=== PATIENT | male | born 1955 | race Caucasian/White ===

== ENCOUNTER → 2016-10-30 | Outpatient (CLI) | payer BC ==
[~2016-10-30] MED LIST: AMITRIPTYLINE100 MG PO; AMITRYPTYLINE PO; AMOXIL500 M1 PO; COREG3.125 MG PO; COUMADIN PO; COUMADIN1 MG PO; COUMADIN10 MG PO; COUMADIN5 MG PO; DEMADEX PO; FLOMAX0.4 M1 PO; KEFLEX500 M1 PO; LANTUS100 U/ML SQ; LANTUS100 U/ML SUBQ; LANTUS100 UNITS/ SUBQ; LEVEMIR SQ; LIPITOR PO; LIPITOR80 MG PO; LISINOPRIL10 MG PO; NOVOLOG100 U/M1 SQ; NOVOLOG100 U/M1 SUBQ; NOVOLOG100 U/ML SQ; NOVOLOG100 U/ML SUBQ; OMNICEF300 M1 PO; PLETAL100 M1 PO; PLETAL100 MG PO; PRINCIPEN500 M2 PO; SODIUM BICARBO650 MG PO; TOPAMAX25 M1 PO; TOPAMAX25 MG PO; TRAMADOL HCL50 M1 PO; TRAMADOL HCL50 M2 PO; VIBRAMYCIN100 M1 PO; ZESTORETIC 20/21 TAB PO
--- NOTE | ~2016-10-30 | US77 ---
[facility] A Service of [facility] & [facility] RADIOLOGY TEXT RESULTS PATIENT: ABDULKADIR VILLEDA LOCATION: US : 56 UNIT #: [id number] AGE: [address]: Roger Quiroga MD SEX: M ORDER DR: [id number] [facility] [address] [place], [place] [address] [id number] O MR#: [id number] Acc #: [id number] NAME: ABDULKADIR VILLEDA : 1955 SEX: M STUDY DATE/TIME: 10/30/2016 13:29 UNIT: US ROOM: STUDY DESCRIPTION: US Kidney Bilateral Complete Attending Physician: Roger Quiroga M.D. Referring Physician: Roger Quiroga M.D. Ordering Physician: Roger Quiroga M.D. Primary Care Physician: Tari Garcia MEDICAL IMAGING REPORT This report is preliminary unless electronic signature is present EXAM Renal ultrasound. COMPARISON February 02, 2014, and December 30, 2013. INDICATIONS 61-year-old male with acute on chronic renal insufficiency. Estimated GFR of 32 with creatinine of 2.2. FINDINGS There is severe right hydronephrosis and proximal right hydroureter. The right kidney measures up to 13.4 cm in length, enlarged from comparison. There is peripheral cortical thinning in the right kidney which may have progressed from 2014 with cortical thickness of approximately 9 mm. There is fluid distension of the urinary bladder. There is moderate new left hydronephrosis and proximal hydroureter with left renal length of 15.6 cm, increased in length from comparison. There also appears to be some progressive cortical thinning of the left kidney, with some areas of cortical thickness measuring up to 7 mm. In one of the inferior pole calyces, there appears to be some debris or possibly solid material of uncertain clinical significance. This could also represent volume averaging with a normal adjacent renal parenchyma at the level of the dilated denny. Technologist shows an image of the dilated left ureter at the level of the urinary bladder with intervening band-like area of shadowing. This may be artifactual and an obstructing lesion at the distal left ureter cannot entirely be excluded. IMPRESSION 1. New bilateral hydronephrosis as compared to February 02, 2014, severe on the right and moderate on the left. There appears be some progressive cortical thinning of both kidneys which may reflect STS. [facility] A Service of [facility] & [facility] RADIOLOGY TEXT RESULTS PATIENT: ABDULKADIR VILLEDA LOCATION: [email or web address] : 56 UNIT #: [id number] AGE: [address]: Roger Quiroga MD SEX: M ORDER DR: longstanding renal insufficiency or possibly could be secondary to chronic obstruction. Kidneys also appear enlarged from comparison exam which may be a product of the hydronephrosis. 2. In the left inferior pole denny, there is question of some internal debris versus possibly solid mass. This does not appear to have internal color flow. This is a nonspecific finding. There is also questionable obstructing lesion at the left ureterovesicular junction which is thought to be artifactual due to shadow from overlapping structure including obstructing lesion at the distal left ureter cannot entirely be excluded. Urinary bladder is dilated and the finding would seem to reflect some sort of bladder outlet obstruction with upstream hydroureter and hydronephrosis bilaterally. If the patient can tolerate iodinated contrast, CT urography with IV contrast would be helpful for further evaluation of all of these findings. Alternatively MRI with IV Dotarem could be performed in the setting of renal insufficiency. Dictated by... Geovany Wu M.D. THIS IS AN ELECTRONICALLY VERIFIED REPORT Geovany Wu M.D. at 11/01/2016 7:24 AM ELIZA/radha TD: 10/30/2016 21:06 JOB #: [id number] MEDICAL IMAGING REPORT Page 1 of 1 COPY
[2016-10-30 14:56] LABS: PROSTATE SPECIFIC AG SCR 0.41 ng/ml (0.0-4.0)
[2016-10-30 14:57] LABS: BUN/CREATININE RATIO 17.18; CALCIUM SERUM 8.8 mg/dL (8.4-10.2); CREATININE SERUM 3.2 mg/dL (0.6-1.4); POTASSIUM 4.9 mmol/L (3.5-5.1)
== END | disposition home or self-care (01) ==
LOC: CGUS 12:48
PROVIDERS: Urology
DX: R33.9 Retention of urine, unspecified (principal); N13.30 Unspecified hydronephrosis
CPT/HCPCS: 36415; 76770; 80048; G0103

== ENCOUNTER → 2016-11-16 | Outpatient (CLI) | payer BC ==
--- NOTE | ~2016-11-16 | US77 ---
[facility] A Service of [facility] RADIOLOGY TEXT RESULTS PATIENT: ABDULKADIR VILLEDA LOCATION: [facility] : 57 UNIT #: [id number] AGE: [address]: Roger Quiroga MD SEX: M ORDER DR: [id number] [address] [address] [id number] O MR#: [id number] Acc #: [id number] NAME: ABDULKADIR VILLEDA : 1955 SEX: M STUDY DATE/TIME: 11/16/2016 15:01 UNIT: CGUS ROOM: STUDY DESCRIPTION: US Kidney Bilateral Complete Attending Physician: Roger Quiroga M.D. Referring Physician: Roger Quiroga M.D. Ordering Physician: Roger Quiroga M.D. MEDICAL IMAGING REPORT This report is preliminary unless electronic signature is present EXAM Renal ultrasound INDICATIONS Chronic kidney disease stage 3. Hydronephrosis followup. TECHNIQUE Watkins-scale and Doppler imaging of the kidneys and bladder. COMPARISON 10/30/2016. FINDINGS Moderately severe right hydronephrosis, stable to minimally improved from the prior. The right kidney measures 11.9 cm. Unremarkable bladder. Left kidney measures 13 cm. There is moderate left hydronephrosis which is slightly improved from the previous study. IMPRESSION Moderately severe right hydronephrosis, stable to minimally improved. Mild left hydronephrosis, improving since the previous study. Dictated by... Renny Horn M.D. THIS IS AN ELECTRONICALLY VERIFIED REPORT Renny Horn M.D. at 11/20/2016 7:22 AM EED/pcl TD: 11/16/2016 20:45 JOB #: [id number] [facility] A Service [facility] RADIOLOGY TEXT RESULTS PATIENT: ABDULKADIR VILLEDA LOCATION: [facility] : 56 UNIT #: [id number] AGE: [address]: Roger Quiroga MD SEX: M ORDER DR: MEDICAL IMAGING REPORT Page 1 of 1 COPY
[2016-11-16 17:52] LABS: BUN/CREATININE RATIO 26.45; CALCIUM SERUM 9.1 mg/dL (8.4-10.2); CREATININE SERUM 3.1 mg/dL (0.6-1.4); GLOM FILT RATE Estimated 20.7 mL/min (>60); POTASSIUM 4.9 mmol/L (3.5-5.1)
== END | disposition home or self-care (01) ==
LOC: CGUS 11-15 14:15
PROVIDERS: Urology
DX: N13.30 Unspecified hydronephrosis (principal); N17.9 Acute kidney failure, unspecified; N18.9 Chronic kidney disease, unspecified
CPT/HCPCS: 36415; 76770; 80048

== ENCOUNTER 2016-11-30 20:23 | Inpatient (IN) | payer BC ==
--- NOTE | ~2016-11-30 | EKG ---
PATIENT: ABDULKADIR VILLEDA UNIT #: [id number] Ventricular Rate: 96 BPM Atrial Rate: 96 BPM P-R Interval: 160 ms QRS Duration: 104 ms Q-T Interval: 354 ms QTC Calculation(Bezet): 447 ms P [place]: 38 degrees Calculated R [place]: -29 degrees Calculated T [place]: 33 degrees Diagnosis Line: Normal sinus rhythm Diagnosis Line: Normal ECG Diagnosis Line: When compared with ECG of 29-MAR-2016 18:31, Diagnosis Line: No significant change was found Diagnosis Line: Confirmed by ESTER CALIX MD ([id number]) on Diagnosis Line: 12/03/2016 9:36:42 PM INTERPRETING MD: FIFI WALKER
--- NOTE | ~2016-11-30 | CR72 ---
[facility] A Service of [facility] & [facility] RADIOLOGY TEXT RESULTS PATIENT: ABDULKADIR VILLEDA LOCATION: [facility] 310- : 56 UNIT #: [id number] AGE: [address]: Shelby Soto MD SEX: M ORDER DR: [id number] [facility] [address] [place], [place] [address] [id number] I MR#: [id number] Acc #: [id number] NAME: ABDULKADIR VILLEDA : 1955 SEX: M STUDY DATE/TIME: 11/30/2016 21:38 UNIT: [facility] ROOM: 14088 STUDY DESCRIPTION: CR Chest Single View Portable Attending Physician: Nando Hugo M.D. Ordering Physician: Roger Mejia M.D. Primary Care Physician: Antoni Garcia M.D. MEDICAL IMAGING REPORT This report is preliminary unless electronic signature is present EXAM AP portable chest DATE 11/30/2016 at 21:38 HISTORY Chest pain and shortness of breath today. 30-year smoking history. COMPARISON AP portable chest 01/05/2014 FINDINGS No acute airspace disease. Heart size upper limits normal but stable. No pleural effusion or pneumothorax or acute osseous abnormality. IMPRESSION No acute cardiopulmonary findings. Dictated by... Latrice Diop M.D. THIS IS AN ELECTRONICALLY VERIFIED REPORT Latrice Diop M.D. at 12/04/2016 8:47 AM CONSTANZA/elisa TD: 12/01/2016 05:38 JOB #: [id number] MEDICAL IMAGING REPORT Page 1 of 1 COPY
--- NOTE | ~2016-11-30 | CO ---
Unit #: [id number] #: [id number] Patient: ABDULKADIR VILLEDA [id number] [address] [address] [id number] I MR#: [id number] NAME: ABDULKADIR VILLEDA ROOM: 310 Age: 61 Sex: M Admission Date: 12/01/2016 : 1955 Attending Physician: Shelby Soto M.D. Primary Care Physician: Antoni Garcia M.D. Consultation Date: 12/01/2016 CONSULTATION REPORT REASON FOR CONSULTATION Urinary retention, hydronephrosis, acute on chronic renal failure. HISTORY OF PRESENT ILLNESS The patient is a 61-year-old gentleman who has a long history of neurogenic bladder and medical noncompliance. He is currently followed by my partner, Dr. Roger Quiroga. He has a neurogenic bladder and has had previous urodynamics, which showed detrusor failure. He has been managed by clean intermittent catheterization. He has been noncompliant with that in the past, but he has only over the last week or 2 been doing it every 6 hours. He has chronic bilateral hydronephrosis, right greater than left. He underwent a renal ultrasound yesterday, which showed some slight improvement in the hydronephrosis, but his creatinine is up to 3.9. He was admitted with excruciating severity, 10/10, right leg pain. He is being worked up for an ischemic right leg. PAST MEDICAL HISTORY 1. Diabetes. 2. MRSA. 3. Peripheral vascular disease. 4. Chronic renal failure. 5. Neurogenic bladder. 6. Hypertension. PAST SURGICAL HISTORY 1. Cholecystectomy. 2. Bypass and stenting of the right leg. MEDICATIONS Documented in the chart. ALLERGIES Documented in the chart. REVIEW OF SYSTEMS Positive for right leg pain. Positive for urinary retention. Negative for dysuria. Negative for hematuria. FAMILY HISTORY Significant for diabetes, cirrhosis, kidney disease. SOCIAL HISTORY Positive for tobacco. Negative for alcohol. Unit #: [id number] #: [id number] Patient: ABDULKADIR VILLEDA PHYSICAL EXAMINATION GENERAL: This is an obese white male in no acute distress. VITALS: Temperature 98.1, blood pressure is 101/60, pulse 76, satting 98%. HEENT: Normocephalic, atraumatic. The extraocular movements are intact. NECK: Neck is supple. No lymphadenopathy. LUNGS: The patient is breathing comfortably. Has symmetric chest rise. ABDOMEN: Soft, nontender, nondistended. EXTREMITIES: He is moving all extremities well. His bilateral lower extremities are warm. He has well-healed surgical incisions. . DIAGNOSTIC STUDIES LABS: Labs are significant for a creatinine of 3.9. His baseline creatinine is in the range of the low 3's. IMAGING: Renal ultrasound reviewed, as above. ASSESSMENT AND PLAN 1. Acute on chronic renal failure. I think this multifactorial. There may be an element of obstruction. He has only been mildly compliant with his clean intermittent catheterization. 2. Neurogenic bladder with bilateral hydronephrosis. We will place a Gauilar catheter. If he does not have improvement in his renal function, we may need to repeat imaging and place stents. Dictated by... Jarrett Lopez M.D. DEB/donato TD: 12/01/2016 15:25 JOB #: [id number] CONSULTATION REPORT Page 1 of 1 X Jarrett Lopez MD X CONSULTATION REPORT
--- NOTE | ~2016-11-30 | US83 ---
[facility] A Service of [facility] & [facility] RADIOLOGY TEXT RESULTS PATIENT: ABDULKADIR VILLEDA LOCATION: [facility] 310- : 57 UNIT #: [id number] AGE: [address]: Shelby Soto MD SEX: M ORDER DR: [id number] [facility] [address] [place], [place] [address] [id number] I MR#: [id number] Acc #: [id number] NAME: ABDULKADIR VILLEDA : 1955 SEX: M STUDY DATE/TIME: 12/01/2016 10:10 UNIT: A U ROOM: 310 STUDY DESCRIPTION: US LE [employer] Attending Physician: Shelby Soto M.D. Ordering Physician: Alistair Rome M.D. Primary Care Physician: Antoni Garcia M.D. MEDICAL IMAGING REPORT This report is preliminary unless electronic signature is present EXAM Right lower extremity arterial duplex, 12/01/2016 HISTORY Right lower extremity ischemia. FINDINGS Duplex imaging of the right lower extremity was performed. The patient has a complex history of vascular bypass graft in the past, details of which are unknown. Examination done last night had shown possibly patency of some vessels which were not clear. Additional images were taken today which were reviewed. The above knee popliteal artery has some flow which is slow at 25 cm/sec and biphasic. No bypass graft is seen in this area. This has been initially labeled as a bypass graft but appears to be the [place] popliteal artery with reconstitution of flow. No bypass graft could be identified in the right lower extremity which is patent. IMPRESSION Flow is seen in the [place] popliteal artery with low velocities. No bypass graft is identified and is presumed to be occluded. Dictated by... Alistair Rome M.D. THIS IS AN ELECTRONICALLY VERIFIED REPORT Alistair Rome M.D. at 12/04/2016 9:18 AM Selena TD: 12/01/2016 14:18 JOB #: [id number] MEDICAL IMAGING REPORT Page 1 of 1 COPY
--- NOTE | ~2016-11-30 | US136 ---
[facility] A Service of [facility] & [facility] RADIOLOGY TEXT RESULTS PATIENT: ABDULKADIR VILLEDA LOCATION: [facility] 310- : 56 UNIT #: [id number] AGE: [address]: Shelby Soto MD SEX: M ORDER DR: [id number] [facility] [address] [place], [place] [address] [id number] I MR#: [id number] Acc #: [id number] NAME: ABDULKADIR VILLEDA : 1955 SEX: M STUDY DATE/TIME: 12/02/2016 9:53 [facility] 310 STUDY DESCRIPTION: US U/L Ext [employer] Bil[employer] Attending Physician: Shelby Soto M.D. Ordering Physician: Alistair Rome M.D. Primary Care Physician: Antoni Garcia M.D. MEDICAL IMAGING REPORT This report is preliminary unless electronic signature is present EXAM Ankle-brachial indices, 12/02/2016 HISTORY Peripheral vascular disease. Absent pulses. FINDINGS Waveforms are significantly dampened in the right ankle and biphasic at the left ankle. Right brachial pressure is 120 and left brachial pressure was not done because of an IV. On the right side, posterior tibial pressure is 86, dorsalis pedis is 83, great toe is 42 for a right ankle-brachial index of 0.72. On the left side, posterior tibial pressure is 174, dorsalis pedis is 179 and great toe is 110 for a left ankle-brachial index of 1.49. IMPRESSION 1. Moderate peripheral vascular disease is seen in the right lower extremity with ankle-brachial index of 0.72. Small vessel disease is seen in the foot with low toe pressures of 42. 2. On the left side waveforms are normal and the ABIs are elevated at 1.49 which could indicate some amount of calcification. Toe pressures are normal. Normal perfusion is felt to be present in the left side. Dictated by... Alistair Rome M.D. THIS IS AN ELECTRONICALLY VERIFIED REPORT Alistair Rome M.D. at 12/04/2016 9:18 AM /caro TD: 12/02/2016 11:37 [facility] A Service of [facility] & [facility] RADIOLOGY TEXT RESULTS PATIENT: ABDULKADIR VILLEDA LOCATION: [facility] 310-01 : 56 UNIT #: [id number] AGE: [address]: Shelby Soto MD SEX: M ORDER DR: JOB #: [id number] MEDICAL IMAGING REPORT Page 1 of 1 COPY
--- NOTE | ~2016-11-30 | US83 ---
[facility] A Service of [facility] RADIOLOGY TEXT RESULTS PATIENT: ABDULKADIR VILLEDA LOCATION: [facility] 310- : 56 UNIT #: [id number] AGE: [address]: Shelby Soto MD SEX: M ORDER DR: [id number] [facility] [address] [place], [place] [address] [id number] I MR#: [id number] Acc #: [id number] NAME: ABDULKADIR VILLEDA : 1955 SEX: M STUDY DATE/TIME: 11/30/2016 22:21 [facility] STUDY DESCRIPTION: US LE [employer] Attending Physician: Shelby Soto M.D. Ordering Physician: Roger Mejia M.D. Primary Care Physician: Antoni Garcia M.D. MEDICAL IMAGING REPORT This report is preliminary unless electronic signature is present EXAM Right leg/lower extremity arterial grafts unilateral HISTORY Right leg pain for the past 1.5 weeks. History of previous right lower leg bypass grafting. PROCEDURE Watkins-scale, color Doppler, and spectral imaging vessels of the right leg. COMPARISON None. FINDINGS Minimal flow seen in the region of the right superficial femoral artery. Right, a formal artery and deep femoral arteries are patent. Minimal flow in the patient's bypass graft with what appears to be intraluminal thrombus in the proximal segment. There is detectable arterial flow at the knee. Little, if any, arterial flow is seen in the calf. IMPRESSION Suspected thrombosis of the patient's bypass graft with only minimal flow and visualized thrombus at least in the proximal segment. There is some detectable arterial flow at the knee but little, if any, detected arterial flow in the right calf. Dictated by... Renny Horn M.D. THIS IS AN ELECTRONICALLY VERIFIED REPORT Renny Horn M.D. at 12/02/2016 10:06 PM EED/aa [facility] A Service of [facility] RADIOLOGY TEXT RESULTS PATIENT: ABDULKADIR VILLEDA LOCATION: [facility] 310-01 : 57 UNIT #: [id number] AGE: [address]: Shelby Soto MD SEX: M ORDER DR: TD: 12/01/2016 08:17 JOB #: [id number] MEDICAL IMAGING REPORT Page 1 of 1 COPY
--- NOTE | ~2016-11-30 | CO ---
Unit #: [id number] #: [id number] Patient: ABDULKADIR VILLEDA [id number] [address] [place], [place] [address] [id number] I MR#: [id number] NAME: ABDULKADIR VILLEDA ROOM: 310 Age: 61 Sex: M Admission Date: 12/01/2016 : 1955 Attending Physician: Shelby Soto M.D. Primary Care Physician: Antoni Garcia M.D. Consultation Date: 12/01/2016 CONSULTATION REPORT REASON FOR CONSULTATION Right lower extremity pain and history of peripheral vascular disease. HISTORY OF PRESENT ILLNESS This is a 61-year-old male, who was admitted in the middle of the night on the night of 11/30 or 12/01 with right lower extremity pain. He has a complex vascular history with multiple operations done by Dr. Lay between 1999 and 2001. Apparently, he had bypass here of initially what appears to be a thrombectomy or femoral endarterectomy in the groin. Subsequently, he underwent right femoral to popliteal artery bypass with a right lower extremity saphenous vein and subsequently with the graft and subsequently underwent bypass with the left arm cephalic vein from the groin to the below-knee popliteal artery. The graft before that was what appears to be to the anterior tibial artery and had to be removed because of infection and the wounds were left open for secondary healing. For the last 10 years, he has been followed up with Dr. Woo at [facility]. Apparently for the last 3 to 4 years, he has had only ankle-brachial indices done and was told that he had adequate perfusion to the lower extremity and no interventions were being planned. He was apparently told that he may need amputation if the leg gets worse. He used to be able to work without any problems until a month ago when he started developing pain in the right lower extremity with walking approximately a block. On 11/30/2016, he experienced significant cramping of the right calf with short distance walking and then came to the hospital in the night. He denies any pain in the foot or the toes. No nonhealing wounds. No history of swelling. Denies any trauma. He has been on Coumadin for the last several years. He continues to smoke half pack a day. No history of TIA, CVS, or amaurosis. PAST MEDICAL HISTORY Significant for diabetes with peripheral neuropathy, history of peripheral vascular disease as described above, hypertension, urinary retention, and prostatic hypertrophy. PAST SURGICAL HISTORY Significant for cholecystectomy and lower extremity bypass surgeries as described above. ALLERGIES None known. MEDICATIONS Coumadin 10 mg and 12.5 mg alternate days, Demadex 20 mg b.i.d. p.o., Unit #: [id number] #: [id number] Patient: ABDULKADIR VILLEDA Flomax 0.4 b.i.d. p.o., Lipitor 80 mg p.o. daily, Topamax 25 mg p.o. b.i.d., amitriptyline 100 mg p.o. daily at bedtime, tramadol 50 mg q.6 h., Novolin insulin, Lantus insulin, and lisinopril 10 mg daily. FAMILY HISTORY Positive for chronic kidney disease, diabetes, and cirrhosis. SOCIAL HISTORY Continues to smoke as described above. Does not drink. Lives with his . PHYSICAL EXAMINATION GENERAL: The patient is awake, alert, and oriented. He is in no acute distress. VITAL SIGNS: Blood pressure is 130/90, pulse is 80, respiratory rate 18, and temperature is normal at 98. HEAD AND NECK: Reveals no pallor, icterus, or cyanosis. No neck masses, JVD, or thyromegaly. CHEST: Clear. CVS: Reveals S1 and S2 with muffled heart sounds. No adventitious sounds. ABDOMEN: Soft and nontender with no pulsatile masses. No hepatosplenomegaly. EXTREMITIES: Lower extremities revealed palpable femoral pulses bilaterally. Popliteal pulses are not palpable. On the left side, dorsalis pedis pulses are weakly palpable. On the right side, popliteal and pedal pulses are absent. There is mild tenderness to the calf, but no swelling. No ecchymosis or swelling are palpable. The toes are well perfused with foot actually being warm bilaterally. There is good cap refill bilaterally. INVESTIGATIONS The patient is known to have chronic kidney disease and his creatinine was elevated at admission to 3.9. Baseline is apparently between 3 and 3.2. GFR was 16. Duplex of the right lower extremity was reviewed. This shows the common femoral artery is patent. 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 The material between the graft is echogenic. Distally, there is area which is suspicious for patent graft which is unclear of the location. I repeated the duplex and assisted myself, which showed that the above-knee popliteal artery had some flow, but no distal graft was identified. IMPRESSION Right lower extremity ischemia, which is possibly chronic from chronic occlusion of the graft. I suspect the graft had been occluded for a long time and hence was not evaluated by duplex in the last several years on followup with his vascular surgeon. His lower extremity pain is possibly secondary to worsening progression of disease from his continued smoking, diabetes, and hypertension. He does not have rest pain or nonhealing wounds. Recommend monitoring the patient and watching him at this time with heparin. I am planning on conservative management only and unless he worsens, he will not need any intervention. Intervention would be challenging because of his kidney function. Any contrast may precipitate Unit #: [id number] #: [id number] Patient: ABDULKADIR VILLEDA dialysis initiation, and the patient and the family would very much want avoid it. They understand the risks of amputation and would prefer an amputation to loosen the kidneys at this time. They would like to maximize the time that he would be off for dialysis. I also discussed in extensive detail with the patient and his daughter who works at [employer]. All questions were answered to their satisfaction. We will follow the patient with you. Thank you for the consultation. Dictated by... Alistair Rome M.D. SA/abbe TD: 12/02/2016 23:36 JOB #: [id number] CC: Kristen Saini M.D. Dr. Bergamini CONSULTATION REPORT Page 1 of 1 X Alistair Rome MD CONSULTATION REPORT
--- NOTE | ~2016-11-30 | HP ---
Unit #: [id number] #: [id number] Patient: ABDULKADIR VILLEDA [id number] [address] [address] [id number] I MR#: [id number] NAME: ABDULKADIR VILLEDA ROOM: 310 Age: 61 Sex: M Admission Date: 12/01/2016 : 1955 Attending Physician: Shelby Soto M.D. Primary Care Physician: Antoni Garcia M.D. HISTORY AND PHYSICAL CHIEF COMPLAINT Intractable right leg pain. HISTORY OF PRESENT ILLNESS The patient is a 61-year-old male with a history of peripheral vascular disease status post multiple leg surgeries and stents in the past by Dr. Woo who basically has been having worsening pain over the past 1 1/2 months. Presented last night with acute right leg pain. Pain was excruciating, 10/10, not relieved by his regular tramadol he usually takes. He presented to the emergency room and was admitted. The diagnosis was ischemic right leg. He is being seen by vascular surgery, Dr. Rome, at the time of this dictation. REVIEW OF SYSTEMS No chest pain, headache, shortness of breath, difficulty breathing. No dysuria or frequency. He has some urinary retention, for which he is being followed by Dr. Quiroga. Other than that, no fever or chills or rigors at this time. PAST MEDICAL HISTORY 1. Diabetes mellitus with peripheral neuropathy. 2. History of MRSA UTI. 3. Peripheral vascular disease requiring multiple surgeries in the past. 4. Chronic anticoagulation. 5. Hypercoagulable state. 6. Hypertension. 7. Urinary retention. 8. Benign prostatic hypertrophy. PAST SURGICAL HISTORY 1. Cholecystectomy. 2. Bypass and stenting of the right leg. ALLERGIES No known drug allergies. MEDICATIONS 1. Coumadin "10 mg p.o. in the morning and 12.5 mg p.o. daily." 2. Demadex 20 mg p.o. b.i.d. 3. Flomax 0.4 mg p.o. b.i.d. 4. Lipitor 80 mg p.o. daily. 5. Topamax 25 mg p.o. b.i.d. 6. Amitriptyline 100 mg p.o. at bedtime. 7. Tramadol 50 mg q.6 hours. Unit #: [id number] #: [id number] Patient: ABDULKADIR VILLEDA 8. NovoLog 26 units subcu before breakfast. 9. NovoLog 28 units subcu at lunch. 10. NovoLog 32 units subcu at dinner. 11. Lantus 58 units subcu at bedtime. 12. Lisinopril 10 mg p.o. daily. FAMILY HISTORY Significant for chronic kidney disease, diabetes, cirrhosis. SOCIAL HISTORY Lives with his and his dogs. He still continues to smoke. Denies any alcohol use at this time. PHYSICAL EXAMINATION GENERAL: On examination, he was comfortable. Not in distress. VITAL SIGNS: Blood pressure was 138/95, pulse was about 80, respiratory rate about 18, temperature 98. HEAD: Pupils are equal and reactive to light and accommodation. NECK: Supple without thyromegaly. CHEST: Reduced breath sounds in lung bases posteriorly. CARDIOVASCULAR: First and second heart sounds only. ABDOMEN: Full. Moved with respiration. No area of tenderness. SKIN: Warm and dry with no rashes. He had multiple areas of scars on most of his extremities. LYMPHATIC SYSTEM: No enlarged peripheral lymphadenopathy that I could appreciate. COMMERCIAL ATTACHE EXAM: Alert and oriented x3. Moved all his limbs spontaneously. Cranial nerves II-XII grossly intact. EXTREMITIES: Multiple scars over lower extremities. Bilateral lower extremities seem to be equal temperature and none were cold or ischemic looking at this time. DIAGNOSTIC DATA CARDIOVASCULAR: He had an EKG, which showed normal sinus rhythm. Normal EKG. LABORATORY: He had chemistries - Glucose of 199, BUN and creatinine 90 and 3.9, sodium and potassium 129 and 4.6, chloride and bicarbonate 100 and 16 respectively. He had a CBC - WBC 16.2, hemoglobin and hematocrit 12.9 and 39.3 with a platelet count of 209. Urinalysis - Leukocyte esterase 3+, protein 2+, glucose greater than 1,000, urobilinogen 0.2, blood 2+. ASSESSMENT AND PLAN 1. Right leg pain, possibly ischemia. I had a long discussion with Dr. Rome. He wants to avoid any invasive testing at this time, as the patient's kidneys are already compromised and this may further compromise this. His recommendation will be to continue the IV heparin at least for the next 2-3 days and continue patient on anticoagulation and see how he does. Per Dr. Rome, the patient has been informed in the past by Dr. Woo that there is no further surgical intervention, for which he would be a candidate, given the fact that he has had multiple procedures in the past, and should he still be symptomatic, the next step would be amputation. Dr. Rome is of the opinion that the patient may not be at that point at this time but would like to temporize and follow him clinically to see how he does the next few days. 2. Diabetes mellitus. Continue to check his sugars. Continue insulin Unit #: [id number] #: [id number] Patient: ABDULKADIR VILLEDA per home dose. 3. Hypertension. 4. Urinary retention. Would consult Dr. Quiroga to see the patient while he is here. 5. Hypercoagulable state. Continue heparin as the patient is on Coumadin right now. 6. Check a CBC, BMP in the morning. 7. Code status - Full code. Dictated by Kristen Saini/donato TD: 12/01/2016 13:16 JOB #: [id number] HISTORY AND PHYSICAL Page 1 of 1 X Shelby Soto MD X HISTORY AND PHYSICAL
[~2016-11-30 20:23] MED LIST changes: -COUMADIN10 MG PO; -LANTUS100 UNITS/ SUBQ; -LIPITOR PO; -NOVOLOG100 U/ML SUBQ; -OMNICEF300 M1 PO; -PRINCIPEN500 M2 PO; -SODIUM BICARBO650 MG PO
[2016-11-30] MEDS ORDERED: COUMADIN PO (20:33)
[2016-11-30] MEDS ORDERED: COUMADIN10 MG PO (20:33)
[2016-11-30] MEDS ORDERED: DEMADEX PO (20:34)
[2016-11-30] MEDS ORDERED: FLOMAX0.4 M1 PO (20:35)
[2016-11-30] MEDS ORDERED: LIPITOR PO (20:35)
[2016-11-30] MEDS ORDERED: TOPAMAX25 MG PO (20:36)
[2016-11-30] MEDS ORDERED: AMITRIPTYLINE100 MG PO (20:37)
[2016-11-30] MEDS ORDERED: TRAMADOL HCL50 M1 PO (20:38)
[2016-11-30] MEDS ORDERED: NOVOLOG100 U/ML SUBQ ×3 (20:39→20:40)
[2016-11-30] MEDS ORDERED: LANTUS100 UNITS/ SUBQ (20:41)
[2016-11-30] MEDS ORDERED: LISINOPRIL10 MG PO (20:41)
[2016-11-30 21:31] LABS: BASOPHIL# 0.1 X10e3 (0-0.3); BASOPHIL% 0.9 % (0-2.5); EOSINOPHIL# 0.4 X10e3 (0-0.7); EOSINOPHIL% 2.3 % (0.0-7.0); HEMATOCRIT 42.7 % (38.0-50.0); HEMOGLOBIN 14.3 gm/dL (13.0-16.0); LYMPHOCYTE# 6.5 X10e3 (1.0-3.5); LYMPHOCYTE% 40.6 % (17.0-45.0); MEAN CELL VOLUME 81.8 FL (83-96); MEAN CORPUSCULAR HEMOGLOBIN 27.4 PG (28-34); MEAN CORPUSCULAR HGB CONC 33.5 g/dL (30-36); MEAN PLATELET VOLUME 8.5 FL (6.5-11.5); MONOCYTE# 1.2 X10e3 (0-1.0); MONOCYTE% 7.2 % (3.0-12.0); NEUTROPHIL# 7.9 X10e3 (1.5-7.1); PLATELET COUNT 252 X10e3 (140-420); RED BLOOD COUNT 5.22 X10e (3.90-5.60); RED CELL DISTRIBUTION WIDTH 14.2 % (11.0-15.5)
[2016-11-30 21:35] LABS: DIFF IND YES
[2016-11-30 21:40] LABS: INR 2.3; PROTHROMBIN TIME (PATIENT) 24.8 SECONDS (9.6-11.5)
[2016-11-30 21:45] LABS: POC - CKMB 5.5 ng/mL (0.0-7.9); POC - TROPONIN <0.05 ng/mL (<=0.05)
[2016-11-30 21:48] LABS: ALBUMIN SERUM 4.2 g/dL (3.5-5.0); ALKALINE PHOSPHATASE 137 U/L (32-92); ALT (SGPT) 20 U/L (10-40); AST (SGOT) 18 U/L (10-42); BILIRUBIN,TOTAL 0.4 mg/dL (0.2-2.0); BLOOD UREA NITROGEN 90 mg/dL (9-23); BUN/CREATININE RATIO 23.07; CALCIUM SERUM 8.9 mg/dL (8.4-10.2); CARBON DIOXIDE 16 mmol/L (22-31); CHLORIDE 100 mmol/L (100-111); CREATININE SERUM 3.9 mg/dL (0.6-1.4); GLOM FILT RATE Estimated 15.7 mL/min (>60); GLUCOSE FASTING 199 mg/dL (70-110); PLATELET ESTIMATE NORMAL (NORMAL); POTASSIUM 4.6 mmol/L (3.5-5.1); PROTEIN TOTAL SERUM 8.1 g/dL (6.0-8.3); SODIUM 129 mmol/L (135-145)
[2016-11-30 21:49] LABS: POLYCHROMASIA SL
[2016-11-30 21:54] LABS: BILIRUBIN, DIRECT <0.1 mg/dL (0.0-0.2); BILIRUBIN,INDIRECT 0.3 mg/dL (0.0-0.9)
[2016-11-30 23:33] LABS: POC - CKMB 4.7 ng/mL (0.0-7.9); POC - TROPONIN <0.05 ng/mL (<=0.05)
[2016-12-01 01:51] LABS: URINE SOURCE CLEAN CATCH
[2016-12-01 02:08] LABS: URINE APPEARANCE CLOUDY; URINE BILIRUBIN NEG (NEG); URINE BLOOD 2+ (NEG); URINE COLOR YELLOW; URINE GLUCOSE >1000 MG/DL (NEG); URINE KETONE NEG (NEG); URINE LEUKOCYTE ESTERASE 3+ (NEG); URINE NITRATE NEG (NEG); URINE PH 5.5 (5-8); URINE PROTEIN 2+ (NEG); URINE SPECIFIC GRAVITY 1.011 (1.003-1.035); URINE UROBILINOGEN 0.2 MG/DL (NEG)
[2016-12-01 02:09] LABS: URINE BACTERIA AUWI NEG (NEGATIVE); URINE SQUAMOUS EPITHELIAL CELL NONE SEEN /[HPF]; UWBCS1 AUWI INNUM (0-5)
[2016-12-01 02:42] LABS: BASOPHIL# 0.1 X10e3 (0-0.3); BASOPHIL% 0.5 % (0-2.5); EOSINOPHIL# 0.3 X10e3 (0-0.7); EOSINOPHIL% 1.7 % (0.0-7.0); HEMATOCRIT 39.3 % (38.0-50.0); HEMOGLOBIN 12.9 gm/dL (13.0-16.0); LYMPHOCYTE# 5.2 X10e3 (1.0-3.5); LYMPHOCYTE% 31.9 % (17.0-45.0); MEAN CELL VOLUME 82.8 FL (83-96); MEAN CORPUSCULAR HEMOGLOBIN 27.1 PG (28-34); MEAN CORPUSCULAR HGB CONC 32.7 g/dL (30-36); MEAN PLATELET VOLUME 8.7 FL (6.5-11.5); MONOCYTE# 1.2 X10e3 (0-1.0); MONOCYTE% 7.3 % (3.0-12.0); NEUTROPHIL# 9.5 X10e3 (1.5-7.1); NEUTROPHIL% 58.6 % (40-75); PLATELET COUNT 207 X10e3 (140-420); RED BLOOD COUNT 4.74 X10e (3.90-5.60); RED CELL DISTRIBUTION WIDTH 14.2 % (11.0-15.5); WHITE BLOOD COUNT 16.2 X10e3 (4.0-10.5)
[2016-12-01 02:43] LABS: DIFF IND NO
[2016-12-01 02:51] LABS: INR 2.3; PARTIAL THROMBOPLASTIN TIME 29.2 SECONDS (23.5-31.3); PROTHROMBIN TIME (PATIENT) 24.4 SECONDS (9.6-11.5)
[2016-12-02 06:09] LABS: HEMATOCRIT 38.9 % (38.0-50.0); HEMOGLOBIN 12.6 gm/dL (13.0-16.0); MEAN CELL VOLUME 83.8 FL (83-96); MEAN CORPUSCULAR HGB CONC 32.2 g/dL (30-36); MEAN PLATELET VOLUME 9.3 FL (6.5-11.5); RED BLOOD COUNT 4.64 X10e (3.90-5.60); RED CELL DISTRIBUTION WIDTH 14.2 % (11.0-15.5); WHITE BLOOD COUNT 8.3 X10e3 (4.0-10.5)
[2016-12-02 06:24] LABS: INR 1.7; PROTHROMBIN TIME (PATIENT) 17.8 SECONDS (9.6-11.5)
[2016-12-02 07:03] LABS: CALCIUM SERUM 8.2 mg/dL (8.4-10.2); GLOM FILT RATE Estimated 21.6 mL/min (>60)
[2016-12-02 07:09] LABS: POTASSIUM 5.8 mmol/L (3.5-5.1)
== END 2016-12-02 20:40 | disposition left against medical advice (07) | DRG 300 ==
LOC: CED 20:23 → CEDOF 12-01 01:21 → C3A PCU 12-01 01:21 → CEDOF 12-01 07:06 → C3A PCU 12-01 11:48
PROVIDERS: Emergency Medicine; Family Medicine
DX: I70.201 Unspecified atherosclerosis of native arteries of extremities, right leg (principal); N13.30 Unspecified hydronephrosis; N17.9 Acute kidney failure, unspecified; E11.42 Type 2 diabetes mellitus with diabetic polyneuropathy; T82.818D Embolism due to vascular prosthetic devices, implants and grafts, subsequent encounter; F17.210 Nicotine dependence, cigarettes, uncomplicated; Z86.14 Personal history of Methicillin resistant Staphylococcus aureus infection; I10 Essential (primary) hypertension; N40.0 Benign prostatic hyperplasia without lower urinary tract symptoms; Z90.49 Acquired absence of other specified parts of digestive tract; Z79.01 Long term (current) use of anticoagulants; Z79.4 Long term (current) use of insulin; R33.9 Retention of urine, unspecified; Z83.3 Family history of diabetes mellitus; Z84.1 Family history of disorders of kidney and ureter; N31.9 Neuromuscular dysfunction of bladder, unspecified
CPT/HCPCS: 36415; 71010; 80048; 80076; 81003; 82553; 82947; 84132; 84155; 84484; 85025; 85027; 85610; 85730; 93005; 93922; 93926; 96374; 99285; J1644; J1815; J2270

== ENCOUNTER → 2016-11-30 | Outpatient (CLI) | payer BC ==
--- NOTE | ~2016-11-30 | US77 ---
[facility] A Service of [facility] RADIOLOGY TEXT RESULTS PATIENT: ABDULKADIR VILLEDA LOCATION: [facility] : 56 UNIT #: [id number] AGE: [address]: Roger Quiroga MD SEX: M ORDER DR: [id number] [place] [id number] [facility] [place], [place] [address] [id number] O MR#: [id number] Acc #: [id number] NAME: ABDULKADIR VILLEDA : 1955 SEX: M STUDY DATE/TIME: 11/30/2016 13:46 UNIT: [facility] ROOM: STUDY DESCRIPTION: US Kidney Bilateral Complete Attending Physician: Roger Quiroga M.D. Referring Physician: Roger Quiroga M.D. Ordering Physician: Roger Quiroga M.D. Primary Care Physician: Antoni Garcia M.D. MEDICAL IMAGING REPORT This report is preliminary unless electronic signature is present EXAMINATION Bilateral renal ultrasound. DATE 11/30/2016 HISTORY Physician's order states hydronephrosis. Patient states "bladder is not emptying correctly." Additional history of bladder surgery years ago. Hydronephrosis. Bladder not emptying correctly. Previous stated history of chronic kidney disease, stage 3. COMPARISON Bilateral renal ultrasound, 11/16/2016. FINDINGS The right kidney measures 11.2 x 6.6 x 6.1 cm. The left kidney measures 14.5 x 7.5 x 7.3 cm. There is [id number] bilateral hydronephrosis which appears slightly improved bilaterally. However, no shadowing renal stone is identified. No cystic or solid renal lesion is identified. There may be mild bilateral renal cortical thinning. Urinary bladder is significantly distended with fluid, but no abnormal urothelial lesion is identified. IMPRESSION 1. Mild to moderate right greater than left hydronephrosis. The hydronephrosis in both kidneys appears slightly diminished or improved compared to 11/16/2016. 2. Significant urinary bladder distension with fluid, but no obstructing etiology or urothelial abnormality is identified. [facility] A Service of [facility] RADIOLOGY TEXT RESULTS PATIENT: ABDULKADIR VILLEDA LOCATION: [facility] #: [id number] : 57 UNIT #: [id number] AGE: [address]: Roger Quiroga MD SEX: M ORDER DR: Dictated by... Latrice Diop M.D. THIS IS AN ELECTRONICALLY VERIFIED REPORT Latrice Diop M.D. at 12/04/2016 8:40 AM CONSTANZA/radha TD: 11/30/2016 21:01 JOB #: [id number] MEDICAL IMAGING REPORT Page 1 of 1 COPY
[2016-11-30 14:09] LABS: BUN/CREATININE RATIO 25.14; CALCIUM SERUM 8.8 mg/dL (8.4-10.2); CREATININE SERUM 3.5 mg/dL (0.6-1.4); GLOM FILT RATE Estimated 17.9 mL/min (>60)
== END | disposition home or self-care (01) ==
LOC: CGUS 13:15
PROVIDERS: Urology
DX: N13.30 Unspecified hydronephrosis (principal); N32.89 Other specified disorders of bladder
CPT/HCPCS: 36415; 76770; 80048

== ENCOUNTER → 2016-12-06 | Outpatient (CLI) | payer BC ==
[~2016-12-06] MED LIST changes: +COUMADIN10 MG PO; +LANTUS100 UNITS/ SUBQ; +LIPITOR PO; +NOVOLOG100 U/ML SUBQ; +OMNICEF300 M1 PO; +PRINCIPEN500 M2 PO; +SODIUM BICARBO650 MG PO
[2016-12-06 13:06] LABS: BUN/CREATININE RATIO 25.33; CALCIUM SERUM 9.5 mg/dL (8.4-10.2); GLOM FILT RATE Estimated 21.6 mL/min (>60)
[2016-12-06 13:10] LABS: POTASSIUM 5.5 mmol/L (3.5-5.1)
== END | disposition home or self-care (01) ==
LOC: CLAB 12:07
PROVIDERS: Urology
DX: N13.30 Unspecified hydronephrosis (principal)
CPT/HCPCS: 36415; 80048

== ENCOUNTER → 2016-12-11 | Outpatient (CLI) | payer BC ==
--- NOTE | ~2016-12-11 | US77 ---
[facility] A Service of [facility] & [facility] RADIOLOGY TEXT RESULTS PATIENT: ABDULKADIR VILLEDA LOCATION: [facility] : [birth year] UNIT #: [id number] AGE: [address]: Roger Quiroga MD SEX: M ORDER DR: [id number] [id number] [facility]. [place], [place] [address] [id number] O MR#: [id number] Acc #: [id number] NAME: ABDULKADIR VILLEDA : 1955 SEX: M STUDY DATE/TIME: 12/11/2016 14:21 UNIT: [facility] ROOM: STUDY DESCRIPTION: US Kidney Bilateral Complete Attending Physician: Roger Quiroga M.D. Referring Physician: Roger Quiroga M.D. Ordering Physician: Roger Quiroga M.D. Primary Care Physician: Antoni Garcia M.D. MEDICAL IMAGING REPORT This report is preliminary unless electronic signature is present EXAM Bilateral renal ultrasound. DATE 12/11/2016 HISTORY Hydronephrosis seen on recent ultrasound. Catheterization. Diabetes. Hypertension. COMPARISON Bilateral renal ultrasound 11/30/2016. FINDINGS The right kidney measures about 12.6 cm in length, and the left kidney measures approximately 14.6 cm in length. Both kidneys demonstrate cortical thinning. A cyst is seen within the right upper renal pole measuring about 1.6 cm. There is a complex cystic versus solid nodule in the right upper renal pole measuring up to 2.5 cm, not seen on any of the prior ultrasound examinations. It is conceivable that this may have been present, but obscured by bowel gas on previous exams. Interval resolution of bilateral hydronephrosis since previous examination. Urinary bladder is completely decompressed by Aguilar catheter. IMPRESSION 1. Resolution of bilateral hydronephrosis since the recent ultrasound of 11/30/2016. 2. Aguilar catheter completely decompresses the urinary bladder. 3. There is a hypoechoic lesion within the right upper renal pole. It could represent a complex cystic lesion or solid lesion. It measures up to 2.5 cm. It is not seen on previous ultrasound, and may be new [facility] A Service of [facility] & [facility] RADIOLOGY TEXT RESULTS PATIENT: ABDULKADIR VILLEDA [id number] [birth year] UNIT #: [id number] AGE: [address]: Roger Quiroga MD SEX: M ORDER DR: or potentially just obscured by bowel gas on the previous exam. Consider short-term ultrasound follow up. 4. Benign-appearing cyst in the right upper renal pole. 5. Bilateral renal cortical thinning. Dictated by... Latrice Diop M.D. THIS IS AN ELECTRONICALLY VERIFIED REPORT Latrice Diop M.D. at 12/14/2016 8:39 AM CONSTANZA/radha TD: 12/12/2016 20:52 JOB #: [id number] MEDICAL IMAGING REPORT Page 1 of 1 COPY
[2016-12-11 14:40] LABS: BUN/CREATININE RATIO 24.87; CALCIUM SERUM 8.7 mg/dL (8.4-10.2); CREATININE SERUM 3.9 mg/dL (0.6-1.4); GLOM FILT RATE Estimated 15.7 mL/min (>60); POTASSIUM 5.1 mmol/L (3.5-5.1)
== END | disposition home or self-care (01) ==
LOC: CGUS 13:49
PROVIDERS: Urology
DX: N13.30 Unspecified hydronephrosis (principal); N28.89 Other specified disorders of kidney and ureter; N28.1 Cyst of kidney, acquired; Z96.0 Presence of urogenital implants
CPT/HCPCS: 36415; 76770; 80048

== ENCOUNTER 2016-12-18 19:18 | Inpatient (IN) | payer BC ==
--- NOTE | ~2016-12-18 | CO ---
Unit #: [id number] #: [id number] Patient: ABDULKADIR VILLEDA [id number] [address] [place], [place] [address] [id number] I MR#: [id number] NAME: ABDULKADIR VILLEDA ROOM: 478 Age: 61 Sex: M Admission Date: 12/19/2016 : 1955 Attending Physician: Robyn Mo M.D. Primary Care Physician: Antoni Garcia M.D. Consultation Date: 12/20/2016 CONSULTATION REPORT REASON FOR CONSULTATION Urinary retention and urinary tract infection. HISTORY OF PRESENT ILLNESS This pleasant 61-year-old man has a long history of chronic urinary retention and associated infections, obstructive component of his renal failure and noncompliance with care, well documented over the last 3 years on the [facility]'s system alone between me and Dr. Lopez. He has seen several urologists and before seeing me, he had urodynamic demonstration of his large capacity neurogenic atonic bladder and was instructed in self-intermittent catheterization. He has continued to have progressive renal insufficiency, multiple episodes of hydronephrosis, and urinary infection. He has steadfastly over the years refused to comply with intermittent catheterization as instructed. He has performed it partially. I saw him most recently in the office on 12/13/2016. We had yet another lengthy review of his situation. In the weeks before, he had demonstrated with me persistent hydronephrosis on ultrasounds with his best effort at intermittent catheterization. We then demonstrated resolution of the hydronephrosis with an indwelling Aguilar catheter. We discussed that he has severe lower extremity ischemia requiring continued anticoagulation, would place the leg at risk for any operative interventions such as InterStim as has been discussed before. A laser TUR of the prostate would not be unreasonable as he does void spontaneously with some success. In fact, he voided for 3 days before recognizing that he was having difficulty prior to this admission. In summary, he was to have kept an indwelling catheter, but when he saw some purulence at the meatus the day after I saw him, he removed the catheter and thus presents with symptomatic urinary tract infection and elevated renal indices. In addition, it should be noted that Dr. Lopez had reviewed other options in the past including suprapubic tube, and urinary diversion. Finally, he has a newly noted 2.5 cm lesion at the upper pole of the right kidney as seen on most recent ultrasound. I had planned a 3-month ultrasound followup on this initially. PAST MEDICAL HISTORY Diabetes, peripheral vascular disease, hypertension, coronary artery disease, chronic urinary retention, chronic renal insufficiency, urinary tract infection. Unit #: [id number] #: [id number] Patient: ABDULKADIR VILLEDA PAST SURGICAL HISTORY CABG, vascular stents, cholecystectomy, cystoscopy. MEDICATIONS On admission; Coumadin, Demadex, Flomax daily, Lipitor, Topamax, Ultram, Elavil, NovoLog, and Lantus. He has been placed on Zyvox and Rocephin. FAMILY HISTORY Liver disease, stomach cancer, diabetes. SOCIAL HISTORY One [id number] smoker. Occasional alcohol. REVIEW OF SYSTEMS Weakness, chills, headache, nausea, vomiting, diarrhea on admission, resolved. PHYSICAL EXAMINATION GENERAL: The patient appears his usual pleasant self, comfortable, alert. Aguilar catheter in place draining clear yellow urine. ABDOMEN: Soft and nontender. GENITALIA: Stable. EXTREMITIES: No edema. NEUROLOGIC: Intact. SKIN: Warm and pink. HEENT: Unremarkable. DIAGNOSTIC STUDIES LABORATORY RESULTS: BUN 83 and creatinine 3.3, down from 130 and 4.4 on admission. INR 2.0. Urinalysis, consistent with infection. Urine culture, gram-negative rods. IMAGING STUDIES: X-rays, renal ultrasound as noted above. IMPRESSION 1. Chronic urinary retention, primarily neurogenic hypotonic bladder with a presumptive component of benign prostatic hypertrophy. 2. Urinary tract infection associated with noncompliance with recommended indwelling Aguilar catheter after years of failed intermittent catheterization. 3. Worsening chronic kidney disease. 4. Severe peripheral vascular disease, on anticoagulation therapy. 5. Small right upper pole renal mass. PLAN 1. We will go ahead with a baseline CT scan of the abdomen and pelvis without contrast as mass has only now, but noted on ultrasound and this may shed some light as well as image bladder and prostate. 2. We will continue current antibiotic therapy and await culture results. 3. Indefinite continuation of indwelling Aguilar catheter, remains my recommendation as any intervention for the prostate or neurogenic bladder would appear to be at high risk at this time. Thank you Dami for the consultation. Dictated by... Roger Quiroga M.D. Unit #: [id number] #: [id number] Patient: ABDULKADIR VILLEDA JESICA/michaell TD: 12/22/2016 03:28 JOB #: [id number] CC: Kristen Chavarria Jr, M.D. CONSULTATION REPORT Page 1 of 1 X Roger Quiroga MD CONSULTATION REPORT
--- NOTE | ~2016-12-18 | CT4 ---
[facility] A Service of [facility] & [facility] RADIOLOGY TEXT RESULTS PATIENT: ABDULKADIR VILLEDA LOCATION: [facility] 478-01 : [birth year] UNIT #: [id number] AGE: [address]: Taya De Souza MD SEX: M ORDER DR: [id number] [facility] [address] [facility] [place], [place] [address] [id number] I MR#: [id number] Acc #: [id number] NAME: ABDULKADIR VILLEDA : 1955 SEX: M STUDY DATE/TIME: 12/20/2016 19:21 UNIT: [facility] ROOM: [facility] STUDY DESCRIPTION: CT Abd and Pelv Wo Cont Attending Physician: Taya De Souza M.D. Ordering Physician: Roger Quiroga M.D. Primary Care Physician: Antoni Garcia M.D. MEDICAL IMAGING REPORT This report is preliminary unless electronic signature is present EXAM Abdomen and pelvis CT, no contrast, 12/20/16 INDICATIONS 61-year-old male with renal failure, difficulty urinating for a month, bladder mass. Weakness, chills, nausea, elevated white count. TECHNIQUE Noncontrast CT of the abdomen and pelvis was performed. We have no comparison studies. Correlation is made with ultrasound 12/11/16. This CT exam was performed with one or more of the following radiation dose reduction techniques: Automatic exposure control, adjustment of mA and/or kV according to patient size, and iterative reconstruction. FINDINGS CT ABDOMEN: Examination markedly degraded by noncontrast technique. Included lung bases demonstrate emphysema and subpleural fibrosis. No effusion or pneumonia. Aorta demonstrates atherosclerotic change; there is no aneurysm. The spleen and adrenal glands are unremarkable. Faint punctate calcifications associated with the pancreas are most characteristic of sequelae of chronic calcific pancreatitis. No distinct evidence of acute pancreatitis. Gallbladder surgically absent. Liver unremarkable. The right and left kidneys demonstrates hydronephrosis, at least moderate in degree. There is atrophy of the right kidney, likely chronic in nature. There is cortical thinning on the right. There is no radiopaque stone on either side. There is hydroureter, left greater than right. Mild perinephric stranding, left greater than right, which is nonspecific. Correlate for any sign or symptom of ascending urinary tract infection or pyelonephritis, however. Borderline nonspecific retroperitoneal nodes present. The largest measures 12 mm on the left. [facility] A Service of [facility] & [facility] RADIOLOGY TEXT RESULTS PATIENT: ABDULKADIR VILLEDA LOCATION: [facility] [id number] : [birth year] UNIT #: [id number] AGE: [address]: Taya De Souza MD SEX: M ORDER DR: CT PELVIS: The bladder is decompressed by a Aguilar catheter. There is a small amount of air within the bladder. The bladder hunt appear circumferentially prominent and thickened, which is nonspecific and may reflect incomplete distension, or less likely cystitis. There is no well-defined bladder mass identified with noncontrast technique, and due to the decompressed nature of the bladder, it is suboptimally visualized or assessed with CT. If there is concern for a bladder mass, this could be further assessed with dedicated cystoscopy. There is no free fluid or drainable fluid collection in the pelvis. Bowel demonstrates no focal inflammatory change or obstruction. Portions of the right hemiabdomen are excluded from view. Appendix not identified and may be surgically absent. There are inguinal hernias containing fat only bilaterally. Osseous structures demonstrate no suspicious bone lesion. IMPRESSION 1. There is hydronephrotic change of both kidneys that is at least moderate in degree. There is some mild stranding surrounding both kidneys, left greater than right. Etiology for the hydronephrosis is unclear. Correlate with signs or symptoms of ascending urinary tract infection or pyelonephritis, particularly on the left. 2. Nonspecific borderline to mildly enlarged retroperitoneal lymph nodes. These may be reactive but are indeterminate given the reported history of a bladder mass. 3. Asymmetric renal atrophy, likely chronic. 4. The bladder is decompressed by a Aguilar catheter and a focal bladder mass is not clearly demonstrated on CT as described above. There is concentric bladder wall thickening probably related to incomplete distension rather than cystitis, but this should be correlated with urinalysis. 5. There are bilateral inguinal hernias that contain fat only. 6. No bowel obstruction or drainable fluid collection. 7. Appendix not identified but no secondary sign of appendicitis. 8. Status post cholecystectomy. Dictated by... Juan Francisco Galdamez M.D. THIS IS AN ELECTRONICALLY VERIFIED REPORT Juan Francisco Galdamez M.D. at 12/20/2016 10:10 PM MORENO/elvie TD: 12/20/2016 21:43 JOB #: [id number] MEDICAL IMAGING REPORT Page 1 of 1 COPY
--- NOTE | ~2016-12-18 | CO ---
Unit #: [id number] #: [id number] Patient: ABDULKADIR VILLEDA [id number] [address] [place], [place] [address] [id number] I MR#: [id number] NAME: ABDULKADIR VILLEDA ROOM: 241 Age: 61 Sex: M Admission Date: 12/18/2016 : 1955 Attending Physician: Taya De Souza M.D. Primary Care Physician: Antoni Garcia M.D. Consultation Date: 12/19/2016 CONSULTATION REPORT REASON FOR CONSULTATION Acute on chronic kidney disease. HISTORY OF PRESENT ILLNESS Mr. Villeda is a very pleasant 61-year-old gentleman, with a history of known chronic kidney disease due to a history of hypertension, diabetes and issues with urinary retention and infections, who was admitted overnight with flu-like symptoms with chills, nausea, vomiting and diarrhea, as well as weakness. The patient was diagnosed with a urinary tract infection and had hypotension in the emergency room and has been placed on fluids and antibiotics, is feeling somewhat better today. The patient was actually just here last month for issues with urinary retention and vascular disease of the right leg. He left AMA at that time; details are not clear. His Aguilar catheter was apparently removed at some point post discharge, and he has gone back to doing straight caths himself, but he feels like he is not emptying his bladder all the way with the self catheterizations at home. He denies any chest discomfort or shortness of breath. No swelling. Urine still has some sediment in it. PAST MEDICAL HISTORY Significant for chronic kidney disease - now stage 4, hypertension, longstanding diabetes, history of MRSA UTI, peripheral vascular disease with multiple procedures and surgeries on the right leg, hypercoagulable state, neurogenic bladder with retention. PAST SURGICAL HISTORY He has had cholecystectomy, procedures and surgeries on his right leg. HOME MEDS 1. Coumadin 10 mg daily with 12.5 mg on and Saturday, it looks like. 2. Demadex 20 mg b.i.d. 3. Flomax 0.4 mg b.i.d. 4. Lipitor 80 mg a day. 5. Topamax 25 mg b.i.d. 6. Elavil 100 mg at bedtime. 7. Tramadol 50 mg q.6 hours. 8. NovoLog insulin. 9. Lantus 58 units at bedtime. 10. Lisinopril 10 mg daily. ALLERGIES He has no known drug allergies. Unit #: [id number] #: [id number] Patient: ABDULKADIR VILLEDA FAMILY HISTORY Family history is negative for kidney disease, but there is a family history of heart disease and high blood pressure. SOCIAL HISTORY The patient's daughter is present and says that he has cut back on his smoking. No alcohol or drug abuse. REVIEW OF SYSTEMS A complete 12-point review of systems was completed with the above findings. In addition, he denies any headaches or dizziness. No nosebleeds, sore throat or earache. No chest pain or palpitations. No hemoptysis. No hematemesis. No bright red blood per rectum or melena. No rashes. No itching. No flank pain. No fevers here. No intolerance to heat or cold. No bleeding issues. No recent weight changes. Unless otherwise indicated, the review of systems was negative. PHYSICAL EXAMINATION VITAL SIGNS: The patient is afebrile. Pulse 87, respiratory rate 18, blood pressure 126/41. Blood pressure was as low as 77/50. I's and O's are negative by 970 mL. GENERAL: This is 61-year-old male sitting up in bed, said he is feeling better, in no acute distress. HEENT EXAM: Head is atraumatic, normocephalic. Eyes show pink conjunctiva with no scleral icterus. No nasal drainage or nosebleeds. Oropharynx is slightly dry. No thrush. NECK: Neck shows no rigidity, no JVD. CARDIOVASCULAR: Heart is regular rate and rhythm with no significant murmur or rub appreciated. RESPIRATORY: Lungs are clear with no wheezing, no rhonchi. Breathing is nonlabored. ABDOMEN: Abdomen is soft, nontender, nondistended. Bowel sounds are present. EXTREMITIES: No lower extremity cyanosis or edema noted. SKIN: Skin is dry without rashes. GENITOURINARY EXAM: Aguilar catheter is in place with nonbloody urine. MUSCULOSKELETAL EXAM: No joint effusions noted. No CVA tenderness to palpation. NEUROLOGIC: Cranial nerves are grossly intact with no gross motor deficits. LYMPHATIC EXAM: There is no neck cervical lymphadenopathy. PSYCHIATRIC EXAM: Mood and affect appear normal. DIAGNOSTIC STUDIES LABS: Lactic acid level this morning was 0.6. Chemistry this morning showed a sodium of 127, potassium 4.7, chloride 103, bicarb 14, glucose 187, BUN 110, creatinine 4, albumin 2.8. INR was 2.1. CBC showed a white count of 13, hemoglobin 10, platelet count 206. Last night's BUN and creatinine were 130 and 4.4 respectively. Urinalysis did have numerous white blood cells and bacteria. Prior creatinine to this admission, looks like it was 3.9 on December 11, then 3.3 on December 06, which looks to be his baseline. Previous urine cultures were reviewed. He did have a December 2013 Staphylococcus aureus infection. IMAGING: The patient had a kidney ultrasound on December [address] Quiroga that showed resolution of bilateral hydronephrosis. There was a lesion in the right upper renal pole measuring 2.5 cm, being followed by Dr. Quiroga. Unit #: [id number] #: [id number] Patient: ABDULKADIR VILLEDA ASSESSMENT AND PLAN 1. Acute on chronic kidney disease, stage 4. Patient does seem to have progression of his chronic kidney disease due to diabetes, hypertension an d his recurrent retention issues and infection. His acute kidney injury looks to be a combination of retention and a prerenal picture with hypotension, dehydration and OLGA LIDIA inhibitor use at home. His creatinine is falling, and we will continue fluid resuscitation and monitor response. 2. Metabolic acidosis. This is due to his renal insufficiency. I will be increasing his p.o. bicarbonate and his IV bicarbonate. His Topamax will have to be stopped, as it can cause a metabolic acidosis. 3. Hypotension. This is improved. His OLGA LIDIA inhibitor has been stopped, and we will continue fluids. 4. Urinary tract infection, on antibiotics. 5. Urinary retention. We will ask Dr. Quiroga to see again while here. 6. Diabetes. 7. History of known peripheral vascular disease of his right leg, followed by Dr. Woo at [facility]. The patient tells me that he was told he will eventually need amputation of that leg. I would like thank Dr. De Souza for this consult and the opportunity to participate in the evaluation and care of Mr. Villeda. Dictated by... Dami Walls Jr., M.D. BOSTON/donato TD: 12/19/2016 11:50 JOB #: [id number] CONSULTATION REPORT Page 1 of 1 X Dami Walls MD CONSULTATION REPORT
--- NOTE | ~2016-12-18 | DS ---
Unit #: [id number] #: [id number] Patient: ABDULKADIR VILLEDA [id number] [address] [address] [id number] I MR#: [id number] NAME: ABDULKADIR VILLEDA ROOM: 478 Age: 61 Sex: M Admission Date: 12/19/2016 : 1955 Discharge Date: 12/21/2016 Attending Physician: Robyn Mo M.D. Primary Care Physician: Antoni Garcia M.D. DISCHARGE SUMMARY REASON FOR ADMISSION 1. Rbmbl-no-cnicgpa kidney disease. 2. Urinary tract infection. 3. Urinary retention. HISTORY OF PRESENT ILLNESS Please see History and Physical for complete details of initial part of hospital course. HOSPITAL COURSE Consultation was placed to Dr. Walls of nephrology services. Patient was placed on IV fluids and followed throughout. His creatinine at the time of discharge today currently stands at 3.0. Nephrology services will follow the patient as an outpatient. Through this hospital course he did undergo a CT abdomen and pelvis on 12/20/2016 which did reveal hydronephrosis both kidney bilaterally. Urology was consulted. Aguilar catheter was placed and recommended to continue for an additional four weeks post discharge. Initial urinalysis was positive. The final urine culture revealed E coli. While here, the patient received IV Rocephin. At time of discharge, patient was given prescription for Omnicef. At the time of discharge, we are currently awaiting final clearance from Nephrology services in regard to overall regimen at home but from a medical standpoint, patient is currently clinically stable. He will be discharged home in stable and improved condition. Follow up as an outpatient with Dr. Walls of nephrology services as well as with Urology services in approximately four weeks to have Aguilar catheter removed. FINAL DISCHARGE DIAGNOSES 1. Dzxdg-hb-gebktnq kidney disease. Baseline creatinine approximately 3. 2. Urinary tract infection, Escherichia coli, hills sensitive. 3. Hypotension on admission, now resolved. 4. Insulin-dependent diabetes. 5. Neuropathy likely secondary to poorly-controlled diabetes. 6. Chronic urinary retention secondary neurogenic bladder. Discharge with Aguilar catheter times four weeks. 7. Peripheral vascular disease, status post numerous procedures of lower extremity. 8. Chronic anticoagulation. 9. Obesity. 10. Longstanding history of noncompliance. Unit #: [id number] #: [id number] Patient: ABDULKADIR VILLEDA DISCHARGE MEDICATIONS 1. Coumadin as directed. 2. Flomax 0.4 mg p.o. daily. 3. Lipitor 80 mg p.o. daily. 4. Demadex dosage to be reviewed by Nephrology. 5. Topamax has been discontinued please note. 6. Elavil 50 mg p.o. h.s. 7. Ultram 50 mg p.o. q.6 h. p.r.n. 8. NovoLog 26 units q.a.m. 9. NovoLog 28 units at lunch. 10. NovoLog 32 units at dinner. 11. Lantus 58 units subcu h.s. Further medications and/or adjustments will be reviewed by Nephrology prior to discharge. Dictated by... Kristen Childers/mica TD: 12/24/2016 22:51 JOB #: [id number] DISCHARGE SUMMARY Page 1 of 1 X Robyn Mo MD X DISCHARGE SUMMARY
--- NOTE | ~2016-12-18 | CR2 ---
[facility] A Service of [facility] RADIOLOGY TEXT RESULTS PATIENT: ABDULKADIR VILLEDA LOCATION: [place] [address] : [birth year] UNIT #: [id number] AGE: [address]: Taya De Souza MD SEX: M ORDER DR: [id number] [address] [address] [id number] E MR#: [id number] Acc #: [id number] NAME: ABDULKADIR VILLEDA : 1955 SEX: M STUDY DATE/TIME: 12/18/2016 20:29 UNIT: SED ROOM: STUDY DESCRIPTION: CR Abdomen Acute Series Attending Physician: Sim Bower M.D. Ordering Physician: Sim Bower M.D. Primary Care Physician: Antoni Garcia M.D. MEDICAL IMAGING REPORT This report is preliminary unless electronic signature is present. EXAM Acute abdominal series dated 12/18/16. COMPARISON Single frontal view of the chest dated 11/30/16. HISTORY Weakness, headache, chills, nausea and diarrhea since yesterday. FINDINGS Frontal view of the chest was obtained. Lungs appear to be relatively well aerated after giving allowances to the technique. Heart, mediastinum and bones are within normal limits. Two views of the abdomen and one view of the pelvis were obtained. There is evidence of surgical changes in the right side of the abdomen and right groin. Correlate with operative notes. Patient likely has had cholecystectomy also. Nonspecific but nonobstructive bowel gas pattern is seen. There is no obvious free intraperitoneal air underlying the diaphragm. Bones do not demonstrate any significant abnormality. IMPRESSION No significant acute abnormality. Dictated by... Lenin Castaneda M.D. THIS IS AN ELECTRONICALLY VERIFIED REPORT Lenin Castaneda M.D. at 12/20/2016 6:03 PM CPR/psc [facility] A Service of [facility] RADIOLOGY TEXT RESULTS PATIENT: ABDULKADIR VILLEDA LOCATION: [facility] [address] : [birth year] UNIT #: [id number] AGE: [address]: Taya De Souza MD SEX: M ORDER DR: TD: 12/18/2016 23:06 JOB #: [id number] MEDICAL IMAGING REPORT Page 1 of 1
[~2016-12-18 19:18] MED LIST changes: -OMNICEF300 M1 PO; -PRINCIPEN500 M2 PO; -SODIUM BICARBO650 MG PO
[2016-12-18 20:15] LABS: BASOPHIL# 0.1 X10e3 (0-0.3); BASOPHIL% 0.4 % (0-2.5); EOSINOPHIL# 0.1 X10e3 (0-0.7); EOSINOPHIL% 0.5 % (0.0-7.0); HEMATOCRIT 38.3 % (38.0-50.0); HEMOGLOBIN 12.6 gm/dL (13.0-16.0); LYMPHOCYTE# 2.6 X10e3 (1.0-3.5); MEAN CELL VOLUME 82.4 FL (83-96); MEAN CORPUSCULAR HEMOGLOBIN 27.2 PG (28-34); MEAN PLATELET VOLUME 8.8 FL (6.5-11.5); MONOCYTE# 1.3 X10e3 (0-1.0); NEUTROPHIL# 8.9 X10e3 (1.5-7.1); NEUTROPHIL% 69.1 % (40-75); PLATELET COUNT 229 X10e3 (140-420); RED BLOOD COUNT 4.65 X10e (3.90-5.60); RED CELL DISTRIBUTION WIDTH 13.9 % (11.0-15.5); WHITE BLOOD COUNT 12.9 X10e3 (4.0-10.5)
[2016-12-18 20:18] LABS: DIFF IND NO
[2016-12-18 20:23] LABS: URINE APPEARANCE CLOUDY; URINE BILIRUBIN NEG (NEG); URINE BLOOD 2+ (NEG); URINE COLOR YELLOW; URINE GLUCOSE NEG (NORM); URINE KETONE NEG (NEG); URINE LEUKOCYTE ESTERASE 3+ (NEG); URINE NITRATE NEG (NEG); URINE PROTEIN 2+ (NEG); URINE SPECIFIC GRAVITY 1.015 (1.003-1.035); URINE UROBILINOGEN 0.2 MG/DL (NORM)
[2016-12-18 20:24] LABS: MICRO INDICATED? YES
[2016-12-18 20:26] LABS: CULTURE INDICATED? YES; URINE BACTERIA 1+ (NEG); URINE MUCUS PRESENT; URINE SQUAMOUS EPITHELIAL CELL FEW /[HPF]; URINE WBC 200-300 /[HPF] (0-5)
[2016-12-18 20:33] LABS: ALBUMIN SERUM 3.6 g/dL (3.5-5.0); BILIRUBIN, DIRECT 0.1 mg/dL (0.0-0.2); BILIRUBIN,INDIRECT 0.4 mg/dL (0.0-0.9); BILIRUBIN,TOTAL 0.5 mg/dL (0.2-2.0); CALCIUM SERUM 8.6 mg/dL (8.4-10.2); CREATININE SERUM 4.4 mg/dL (0.6-1.4); GLOM FILT RATE Estimated 13.6 mL/min (>60); POTASSIUM 5.2 mmol/L (3.5-5.1); PROTEIN TOTAL SERUM 7.9 g/dL (6.0-8.3)
[2016-12-18 20:43] LABS: BUN/CREATININE RATIO 29.54
[2016-12-19 04:08] LABS: BASOPHIL# 0.1 X10e3 (0-0.3); BASOPHIL% 0.4 % (0-2.5); EOSINOPHIL% 0.3 % (0.0-7.0); HEMATOCRIT 31.9 % (38.0-50.0); LYMPHOCYTE# 2.1 X10e3 (1.0-3.5); LYMPHOCYTE% 15.4 % (17.0-45.0); MEAN CELL VOLUME 82.5 FL (83-96); MEAN CORPUSCULAR HEMOGLOBIN 26.7 PG (28-34); MEAN CORPUSCULAR HGB CONC 32.3 g/dL (30-36); MEAN PLATELET VOLUME 9.2 FL (6.5-11.5); MONOCYTE# 1.7 X10e3 (0-1.0); MONOCYTE% 12.5 % (3.0-12.0); NEUTROPHIL# 9.8 X10e3 (1.5-7.1); NEUTROPHIL% 71.4 % (40-75); PLATELET COUNT 206 X10e3 (140-420); RED BLOOD COUNT 3.87 X10e (3.90-5.60); WHITE BLOOD COUNT 13.7 X10e3 (4.0-10.5)
[2016-12-19 04:12] LABS: DIFF IND NO; HEMOGLOBIN 10.3 gm/dL (13.0-16.0)
[2016-12-19 04:31] LABS: INR 2.1; PROTHROMBIN TIME (PATIENT) 22.7 SECONDS (9.6-11.5)
[2016-12-19 04:44] LABS: ALBUMIN SERUM 2.8 g/dL (3.5-5.0); BILIRUBIN,TOTAL 0.6 mg/dL (0.2-2.0); BUN/CREATININE RATIO 27.5; CALCIUM SERUM 7.5 mg/dL (8.4-10.2); GLOM FILT RATE Estimated 15.2 mL/min (>60); POTASSIUM 4.7 mmol/L (3.5-5.1); PROTEIN TOTAL SERUM 6.4 g/dL (6.0-8.3)
[2016-12-20 06:30] LABS: HEMATOCRIT 32.3 % (38.0-50.0); HEMOGLOBIN 10.4 gm/dL (13.0-16.0); MEAN CELL VOLUME 81.4 FL (83-96); MEAN CORPUSCULAR HEMOGLOBIN 26.3 PG (28-34); MEAN CORPUSCULAR HGB CONC 32.3 g/dL (30-36); MEAN PLATELET VOLUME 8.6 FL (6.5-11.5); RED BLOOD COUNT 3.97 X10e (3.90-5.60); RED CELL DISTRIBUTION WIDTH 14.2 % (11.0-15.5); WHITE BLOOD COUNT 14.2 X10e3 (4.0-10.5)
[2016-12-20 06:42] LABS: PROTHROMBIN TIME (PATIENT) 21.6 SECONDS (10.0-11.7)
[2016-12-20 07:16] LABS: ALBUMIN SERUM 2.5 g/dL (3.5-5.0); BILIRUBIN,TOTAL 0.2 mg/dL (0.2-2.0); BUN/CREATININE RATIO 26.66; CALCIUM SERUM 7.9 mg/dL (8.4-10.2); CREATININE SERUM 3.3 mg/dL (0.6-1.4); GLOM FILT RATE Estimated 19.2 mL/min (>60); PHOSPHOROUS 3.4 mg/dL (2.5-4.6); POTASSIUM 3.8 mmol/L (3.5-5.1); PROTEIN TOTAL SERUM 5.9 g/dL (6.0-8.3)
[2016-12-21 02:25] LABS: BUN/CREATININE RATIO 24.33; GLOM FILT RATE Estimated 21.6 mL/min (>60); INR 1.9; PROTHROMBIN TIME (PATIENT) 20.8 SECONDS (10.0-11.7)
[2016-12-21] MEDS ORDERED: SODIUM BICARBO650 MG PO (15:00)
[2016-12-21] MEDS ORDERED: OMNICEF300 M1 PO (15:02)
[2016-12-21] MEDS ORDERED: PRINCIPEN500 M2 PO (15:07)
[2016-12-23 17:12] LABS: CALCIUM (PTHINTACT) 7.6 mg/dL (8.6-10.3)
== END 2016-12-21 15:46 | disposition home or self-care (01) | DRG 872 ==
LOC: SED 19:18 → CEDOF 22:56 → SED 22:56 → SEDOF 23:21 → CEDOF 23:21 → C2A 12-19 00:13 → SEDOF 12-19 00:13 → C2A 12-19 00:13 → CEDOF 12-19 01:00 → SEDOF 12-19 01:00 → C2A 12-19 01:00 → C4C 12-20 17:32
PROVIDERS: Emergency Medicine; Internal Medicine; Internal Medicine Nephrology
DX: A41.9 Sepsis, unspecified organism (principal); E87.2 Acidosis; E11.22 Type 2 diabetes mellitus with diabetic chronic kidney disease; N17.9 Acute kidney failure, unspecified; N18.4 Chronic kidney disease, stage 4 (severe); N39.0 Urinary tract infection, site not specified; N13.30 Unspecified hydronephrosis; E11.40 Type 2 diabetes mellitus with diabetic neuropathy, unspecified; I12.9 Hypertensive chronic kidney disease with stage 1 through stage 4 chronic kidney disease, or unspecified chronic kidney disease; I49.3 Ventricular premature depolarization; N31.9 Neuromuscular dysfunction of bladder, unspecified; Z90.49 Acquired absence of other specified parts of digestive tract; Z79.4 Long term (current) use of insulin; I73.9 Peripheral vascular disease, unspecified; Z95.1 Presence of aortocoronary bypass graft; Z91.19 Patient's noncompliance with other medical treatment and regimen; Z79.01 Long term (current) use of anticoagulants; N40.1 Benign prostatic hyperplasia with lower urinary tract symptoms; R33.8 Other retention of urine; E86.0 Dehydration
CPT/HCPCS: 36415; 51702; 74022; 74176; 80048; 80053; 80076; 81003; 82310; 82947; 83605; 83970; 84100; 85025; 85027; 85610; 87040; 87086; 87088; 87186; 96361; 96374; 99285; J0696; J1815; J2020; J2405

== ENCOUNTER → 2017-01-14 | Outpatient (CLI) | payer BC ==
[~2017-01-14] MED LIST changes: +OMNICEF300 M1 PO; +PRINCIPEN500 M2 PO; +SODIUM BICARBO650 MG PO
--- NOTE | ~2017-01-14 | US77 ---
[facility] A Service of [facility] RADIOLOGY TEXT RESULTS PATIENT: ABDULKADIR VILLEDA LOCATION: [facility] : [birth year] UNIT #: [id number] AGE: [address]: Roger Quiroga MD SEX: M ORDER DR: [id number] [facility] [address] [place], [place] [address] [id number] O MR#: [id number] Acc #: [id number] NAME: ABDULKADIR VILLEDA : 1955 SEX: M STUDY DATE/TIME: 01/14/2017 13:08 UNIT: [facility] ROOM: STUDY DESCRIPTION: US Kidney Bilateral Complete Attending Physician: Roger Quiroga M.D. Referring Physician: Roger Quiroga M.D. Ordering Physician: Roger Quiroga M.D. Primary Care Physician: Antoni Garcia M.D. MEDICAL IMAGING REPORT This report is preliminary unless electronic signature is present EXAM Renal ultrasound, 01/14/2017. HISTORY Abnormal renal function tests. Elevated BUN of 73, elevated creatinine of 3.0. Abnormally low GFR of 21.6 today. Urinary retention. FINDINGS Right kidney measures 11.4 cm, while the left kidney measures 13.2 cm in longitudinal dimensions. There is no evidence of hydronephrosis or nephrolithiasis. There is a 1.8-cm cyst on the right kidney. 2 adjacent hypoechoic lesions are seen on the mid to upper pole of the right kidney, measuring 1.6 cm and 1.1 cm respectively. These contain internal echoes and cannot be classified as cysts. Correlation with either CT scan of the kidneys with contrast using dedicated renal protocol or renal MRI with gadolinium is recommended for characterization to exclude renal neoplasm. If the patient's renal function does not improve, suggest followup renal ultrasound in 6 months to assess for stability. There is normal renal cortical echogenicity. The bladder was empty for the exam and, therefore, poorly visualized. IMPRESSION 1. 2 indeterminate hypoechoic masses on the right kidney, as detailed above. Renal neoplasm is not excluded on the basis of this examination. If the patient's renal function improves, recommend correlation with either CT scan of the kidneys with contrast using dedicated renal protocol or renal MRI with gadolinium. If the patient's renal function does not improve, suggest followup renal ultrasound in 6 months to assess the indeterminate lesions for stability. 2. Right renal cyst. 3. The bladder was empty for the exam and, therefore, poorly visualized. [facility] A Service of [facility] RADIOLOGY TEXT RESULTS PATIENT: ABDULKADIR VILLEDA LOCATION: [facility] : 57 UNIT #: [id number] AGE: [address]: Roger Quiroga MD SEX: M ORDER DR: STAT * RESULT Dictated by... Justus Ceballos M.D. THIS IS AN ELECTRONICALLY VERIFIED REPORT Justus Ceballos M.D. at 01/15/2017 2:09 PM GARIMA/favio TD: 01/14/2017 16:05 JOB #: [id number] MEDICAL IMAGING REPORT Page 1 of 1 COPY
== END | disposition home or self-care (01) ==
LOC: CGUS 12:48
DX: R33.9 Retention of urine, unspecified (principal); N28.1 Cyst of kidney, acquired; N28.89 Other specified disorders of kidney and ureter
CPT/HCPCS: 76770

== ENCOUNTER → 2017-02-18 | Outpatient (CLI) | payer BC ==
--- NOTE | ~2017-02-18 | US77 ---
[facility] A Service of [facility] & [facility] RADIOLOGY TEXT RESULTS PATIENT: ABDULKADIR VILLEDA LOCATION: [facility] : 57 UNIT #: [id number] AGE: [address]: Roger Quiroga MD SEX: M ORDER DR: [id number] [facility] [address] [place], [place] [address] [id number] O MR#: [id number] Acc #: [id number] NAME: ABDULKADIR VILLEDA : 1955 SEX: M STUDY DATE/TIME: 02/18/2017 13:17 UNIT: [facility] ROOM: STUDY DESCRIPTION: US Kidney Bilateral Complete Attending Physician: Roger Quiroga M.D. Referring Physician: Roger Quiroga M.D. Ordering Physician: Roger Quiroga M.D. Primary Care Physician: Antoni Garcia M.D. MEDICAL IMAGING REPORT This report is preliminary unless electronic signature is present EXAMINATION Bilateral renal ultrasound DATE 02/18/2017 HISTORY Follow up hydronephrosis, Aguilar catheter removed a few weeks ago and has had problems with frequent urination since that time. COMPARISON Bilateral renal ultrasound 01/14/[address] abdomen and pelvis without contrast 12/20/2016. FINDINGS Right kidney measures 13 x 6.2 x 6.2 cm. The left kidney measures 14.2 x 7.2 x 8.9 cm. There is severe bilateral hydronephrosis and proximal hydroureter, which is a new finding since the 01/14/2017 examination. No obstructing lesion is identified, although most of the ureters cannot be visualized sonographically. Urinary bladder is significantly distended with fluid. There is layering echogenic debris within the urinary bladder, which may represent hemorrhagic or proteinaceous debris. No definite abnormal mass lesion or a bladder wall thickening is identified. IMPRESSION 1. Severe bilateral hydronephrosis and hydroureter, new since the 01/14/2017 ultrasound. 2. Urinary bladder is significantly distended with fluid. There is layering echogenic material within the urinary bladder, which is favored to represent hemorrhagic or potentially proteinaceous debris. Correlate with urinalysis findings. STS. [facility] A Service of [facility] & [facility] RADIOLOGY TEXT RESULTS PATIENT: ABDULKADIR VILLEDA LOCATION: [facility] #: [id number] : 57 UNIT #: [id number] AGE: [address]: Roger Quiroga MD SEX: M ORDER DR: 3. Bilateral renal cortical thinning. 4. Two hypoechoic lesions previously documented within the right kidney on the ultrasound from 12/20/2016 are not discretely seen or imaged on today's study. As was suggested on previous CT, consider correlation to dedicated MRI or CT abdomen without and with contrast, renal mass protocol. Alternatively, continued sonographic surveillance imaging would be recommended. Dictated by... Latrice Diop M.D. THIS IS AN ELECTRONICALLY VERIFIED REPORT Latrice Diop M.D. at 02/20/2017 8:43 AM CONSTANZA/elvie TD: 02/18/2017 20:27 JOB #: [id number] MEDICAL IMAGING REPORT Page 1 of 1 COPY
[2017-02-18 13:58] LABS: BUN/CREATININE RATIO 15.92; CALCIUM SERUM 8.2 mg/dL (8.4-10.2); CREATININE SERUM 2.7 mg/dL (0.6-1.4); GLOM FILT RATE Estimated 24.5 mL/min (>60); POTASSIUM 3.3 mmol/L (3.5-5.1)
== END | disposition home or self-care (01) ==
LOC: CGUS 12:19
PROVIDERS: Urology
DX: R33.9 Retention of urine, unspecified (principal); N13.30 Unspecified hydronephrosis; N13.4 Hydroureter; N32.89 Other specified disorders of bladder; N28.89 Other specified disorders of kidney and ureter
CPT/HCPCS: 36415; 76770; 80048